=== PATIENT | male | born 1970 | race Caucasian/White ===

== ENCOUNTER 2019-08-31 05:20 | Emergency (ER) | payer MEDICAID, OTHER ==
[~2019-08-31] VITALS: Ht 185.4 cm; Wt 100.0 kg
[2019-08-31] MEDS ORDERED: HYDR-3965 PO (05:28)
[2019-08-31] MEDS ORDERED: clindamycin 150mg capsule PO ONE (05:30)
[2019-08-31] MEDS ORDERED: CLIN150C8 PO (05:30)
[2019-08-31 05:38] VITALS: BP 149/96
== END 2019-08-31 05:40 | disposition home or self-care (01) ==
LOC: ER 05:21
DX: K08.89 Other specified disorders of teeth and supporting structures (principal); Z79.2 Long term (current) use of antibiotics; Z79.899 Other long term (current) drug therapy
CPT/HCPCS: 99283